=== PATIENT | female | born 1990 | race Caucasian/White ===

== ENCOUNTER 2017-09-05 15:55 | Outpatient (CLI) ==
[2013-05-09 06:58] VITALS: TEMP 99
[2014-05-27 13:19] VITALS: BMI 22.4
--- NOTE | 2017-09-05 16:35 | DI ---
EXAM: Radiographs, left knee HISTORY: Initial presentation for left knee pain following a fall. COMPARISON: None available. TECHNIQUE: Four views. FINDINGS: Bone mineralization is normal. There is no fracture or dislocation. The joint spaces are maintained. No focal soft tissue abnormality is seen. IMPRESSION: No fracture or dislocation.
== END 2017-09-05 15:56 | disposition home or self-care (01) ==
LOC: RAD 15:55
PROVIDERS: ATTEND Nurse Practitioner Family
DX: M25.562 Pain in left knee (principal); W19.XXXA Unspecified fall, initial encounter

== ENCOUNTER 2017-09-13 07:56 | Outpatient (CLI) ==
[2013-05-09 06:58] VITALS: TEMP 99
[2014-05-27 13:19] VITALS: BMI 22.4
[2017-09-13 09:14] LABS: BASOPHILS % (AUTO) 0.4 % (0.0-3.0); EOSINOPHILS # (AUTO) 0.1 K/ul (0.0-0.7); EOSINOPHILS % (AUTO) 1.1 % (0.0-7.0); HEMATOCRIT 41.3 % (37.0-47.0); HEMOGLOBIN 14.7 g/dl (12.0-16.0); IMMATURE GRANULOCYTE % (AUTO) 0.2 % (0.0-5.0); LYMPHOCYTES # (AUTO) 2.2 K/uL (0.60-3.4); LYMPHOCYTES % (AUTO) 39.1 (10.0-50.0); MEAN CORPUSCULAR HEMOGLOBIN 29.4 pg (27.0-31.0); MEAN CORPUSCULAR HGB CONC 35.6 (31.8-35.4); MEAN CORPUSCULAR VOLUME 82.6 fl (81.0-99.0); MONOCYTES # (AUTO) 0.5 K/uL (0.4-2.0); MONOCYTES % (AUTO) 8.1 (0-10); NEUTROPHILS # (AUTO) 2.8 K/ul (2.0-6.9); NEUTROPHILS % (AUTO) 51.1; PLATELET COUNT 214 10^3/uL (140-440); WHITE BLOOD COUNT 5.53 K/ul (4.6-10.2)
--- NOTE | 2017-09-13 09:40 | MRI ---
EXAM: MRI left knee without contrast. HISTORY: Fall. Pain. No left knee surgery reported. TECHNIQUE: Using a local extremity coil on a high field strength magnet multiplanar multisequence MR I was performed of the left knee without intravenous or intra-articular gadolinium contrast. COMPARISON: Four view plain film examination left knee 09/05/2017.. FINDINGS: Within the medial compartment the medial meniscus is intact without discrete surfacing men iscal tear. The medial compartment cartilage congruent without focal underlying subchondral edema. Within the lateral compartment the lateral meniscus is intact without discrete surfacing meniscal tea r. The lateral compartment cartilage congruent without focal underlying subchondral edema. Within the patellofemoral compartment the patella seated with intact medial and lateral patellar reti naculum. Both the patellar and trochlear groove cartilage congruent without focal underlying subchon dral edema. Trace left knee effusion. No osteochondral loose bodies identified. Intact anterior and posterior c ruciate ligaments. The extensor mechanism is intact. Patellar tendinosis. Minimal anterior superfi cial soft tissue edema/swelling. The medial collateral ligament as well as lateral collateral ligame nt complex and posterolateral corner intact. Overall bone marrow signal intensity shows no acute fra cture, stress fracture or bone erosions. IMPRESSION: No discrete surfacing meniscal tear. Trace left knee effusion. Intact cruciate and collateral ligaments. Patellar tendinosis. Minimal anterior superficial soft tissue edema/swelling. No acute fracture/str ess fracture.
[2017-09-13 09:44] LABS: ANION GAP 12.4; BILIRUBIN,TOTAL 0.7 mg/dL (0.00-1.20); BUN/CREATININE RATIO 15.71; CALCIUM 9.3 mg/dL (8.2-10.2); CREATININE 0.7 mg/dL (0.60-1.30); POTASSIUM 4.4 mmol/L (3.5-5.10)
[2017-09-13 09:45] LABS: ALBUMIN 4.1 g/dL (3.4-5.0); ALBUMIN/GLOBULIN RATIO 1.28; CHOL/HDL RATIO 4.7 (4.5-5.5); TOTAL PROTEIN 7.3 g/dL (6.4-8.2)
== END 2017-09-13 07:57 | disposition home or self-care (01) ==
LOC: RAD 07:56
PROVIDERS: ATTEND Nurse Practitioner Family
DX: Z00.00 Encounter for general adult medical examination without abnormal findings (principal); M25.562 Pain in left knee; G89.29 Other chronic pain
CPT/HCPCS: 36415; 80053; 80061; 84443; 85025

== ENCOUNTER 2018-07-30 20:30 | Emergency (ER) ==
[2018-07-30 20:35] VITALS: BMI 24.2
[2018-07-30] MEDS ORDERED: ZOFRAN 4 MG/2 ML IVP STA (20:48)
[2018-07-30] MEDS ORDERED: SODIUM CHLORIDE 1,000 ML IV STA (20:48)
[2018-07-30] MEDS ORDERED: TORADOL IVP STA (20:48)
[2018-07-30] MEDS ORDERED: LEVAQUIN 500 MG in PREMIX 100 ML D5W 1 BAG IV STA (20:49)
--- NOTE | 2018-07-30 20:56 | ED.PDOC ---
General ED Provider: Dr. GABRIEL REAGAN Chief Complaint: Back Pain Stated Complaint: Patient is a 28 year old female who has a history of Kidney stones and Pylonephritis who seen her urologist today for back pain that felt like prior attacks. She was prescribed Macrobid but the pain got worse with nausea. No vomting at this time but severe flank pain. Time Seen by Physician: 20:58 Mode of Arrival: Walk-In Information Source: Patient Exam Limitations: No limitations Primary Care Provider: STEVE ADAME Nursing and Triage Documentation Reviewed and Agree: Yes Does patient meet sepsis criteria?: No System Inflammatory Response Syndrome: Not Applicable Sepsis Protocol: For patient's 13 years and over: Temp is 96.8 and below OR 101 and greater Pulse >90 BPM Resp >20/minute Acutely Altered Mental Status Are patient's symptoms suggestive of a new infection, such as: -Pneumonia -Skin, Soft Tissue -Endocarditis -UTI -Bone, Joint Infection -Implantable Device -Acute Abdominal Infection -Wound Infection -Meningitis -Blood Stream Catheter Infection -Unknown Musculoskeletal Complaint Exam - Back Pain Complaint/Exam Mechanism of Injury: Reports: No known trauma Onset/Duration: 2 days Symptoms Are: Still present Timing: Constant Initial Severity: Moderate Current Severity: Severe Location: Reports: Diffuse (right > left ) Character: Reports: Sharp, Aching, Throbbing Aggravating: Reports: Movements, Bending, Walking Associated Signs and Symptoms: Reports: Abdominal pain, Flank pain (Right >> left ) TAD Risk Factors: Reports: None AAA Risk Factors: Reports: None Cauda Equina Risk Factors: Reports: None Epidural Abcess Risk Factors: Reports: None Related Surgical History: Reports: Kidney Stone Focal Tenderness: Yes Paraspinal Muscle Tenderness: No Paraspinal Muscle Spasm: No Scoliosis: No Lordosis: No Kyphosis: No SLR Test: Right Negative, Left Negative Hip Motion Testing Pain: Right Negative, Left Negative Focal Weakness: Present: None Focal Sensory Loss: Present: None Gait: Present: Normal Back Picture: 1 - pain and tenderness to palpation Differential Diagnoses: Renal Colic, Other (Pyelonephritis ) Review of Systems - Review Of Systems Constitutional: Reports: Chills Eyes: Reports: No symptoms Ears, Nose, Mouth, Throat: Reports: No symptoms Respiratory: Reports: No symptoms Cardiac: Reports: No symptoms GI: Reports: No symptoms : Reports: No symptoms Musculoskeletal: Reports: Back pain Skin: Reports: No symptoms Neurological: Reports: Anxiety Endocrine: Reports: No symptoms Hematologic/Lymphatic: Reports: No symptoms All Other Systems: Reviewed and Negative Past Medical History - Past Medical History Previously Healthy: Yes Endocrine: Reports: None Cardiovascular: Reports: None Respiratory: Reports: None Hematological: Reports: None Gastrointestinal: Reports: None Genitourinary: Reports: UTI, Kidney stones Neuro/Psych: Reports: None Musculoskeletal: Reports: None Cancer: Reports: None Last Menstrual Period: 3 years - Surgical History General Surgical History: Reports: Other (PFO CLOSURE, ESSURE, ) - Family History Family History: Reports: Unknown - Social History Smoking Status: Never smoker Hx Substance Use: No Alcohol Screening: None - Immunizations Tetanus Shot up to Date: Yes Physical Exam - Physical Exam Appearance: Ill-appearing Ill-appearing: Moderate Pain Distress: Severe Neck: Supple Respiratory: Airway patent, Breath sounds clear, Breath sounds equal, Respirations nonlabored Cardiovascular: RRR, Pulses normal, No rub, No murmur GI/: Soft, No masses, Bowel sounds normal, No Organomegaly, Tender (Right lower abdomen) Musculoskeletal: Normal strength, ROM intact Skin: Warm, Dry Neurological: Alert, Oriented Psychiatric: Anxious Interpretation - Radiology Interpretation Radiology Interpretation By: Radiologist Radiology Results: Negative Exam Interpreted: CT Scan Re-Evaluation - Re-Evaluation Time of Re-Evaluation: 23:04 Status: Improved Vital Signs Stable: Yes Pain Level: improved Physician Notification - Case Discussed Physician Notified: Dr Ace Time of Notification: 22:10 (Declined admission due to no fever, or WBC. Rec follow up with PCP in the morning. Return if worse. ) Critical Care Note - Critical Care Note Total Time (mins): 30 Course - Course Hematology/Chemistry: 07/30/18 21:15 07/30/18 21:15 Orders, Labs, Meds: Lab Review 07/30/18 07/30/18 07/30/18 20:40 20:49 21:15 WBC 7.27 RBC 4.77 Hgb 13.5 Hct 39.9 MCV 83.6 MCH 28.3 MCHC 33.8 RDW Coeff of Reinaldo 12.8 Plt Count 209 Immature Gran % (Auto) 0.1 Neut % (Auto) 50.5 Lymph % (Auto) 37.7 [place] % (Auto) 8.3 Eos % (Auto) 3.0 Baso % (Auto) 0.4 Immature Gran # (Auto) 0.0 Neut # (Auto) 3.7 Lymph # (Auto) 2.7 [place] # (Auto) 0.6 Eos # (Auto) 0.2 Baso # (Auto) 0.0 Sodium Potassium Chloride Carbon Dioxide Anion Gap BUN Creatinine Estimated GFR (MDRD) BUN/Creatinine Ratio Glucose Lactic Acid Calcium Total Bilirubin AST ALT Alkaline Phosphatase Total Protein Albumin Globulin Albumin/Globulin Ratio Amylase Lipase Procalcitonin < 0.05 Urine Color Yellow Urine Clarity Slightly Urine pH 6.0 Ur Specific [place] 1.025 Urine Protein Negative Urine Glucose (UA) Negative Urine Ketones Trace Urine Blood Negative Urine Nitrite Negative Urine Bilirubin Negative Urine Urobilinogen 1.0 Ur Leukocyte Esterase Negative Urine Microscopic RBC 0-2 Urine Microscopic WBC 2-5 Ur Squamous Epith Cells 2-5 Calcium Oxalate Crystal 1+ Urine Bacteria 3+ 07/30/18 07/30/18 21:15 21:15 WBC RBC Hgb Hct MCV MCH MCHC RDW Coeff of Reinaldo Plt Count Immature Gran % (Auto) Neut % (Auto) Lymph % (Auto) [place] % (Auto) Eos % (Auto) Baso % (Auto) Immature Gran # (Auto) Neut # (Auto) Lymph # (Auto) [place] # (Auto) Eos # (Auto) Baso # (Auto) Sodium 138.9 Potassium 3.63 Chloride 105.1 Carbon Dioxide 27.6 Anion Gap 9.83 BUN 14.9 Creatinine 0.73 Estimated GFR (MDRD) 94.00 BUN/Creatinine Ratio 20.41 Glucose 102.5 Lactic Acid 1.53 Calcium 8.78 Total Bilirubin 0.50 AST 25.0 ALT 17.3 Alkaline Phosphatase 51.4 Total Protein 7.03 Albumin 4.03 Globulin 3.00 Albumin/Globulin Ratio 1.34 Amylase 56.9 Lipase 128.9 Procalcitonin Urine Color Urine Clarity Urine pH Ur Specific [place] Urine Protein Urine Glucose (UA) Urine Ketones Urine Blood Urine Nitrite Urine Bilirubin Urine Urobilinogen Ur Leukocyte Esterase Urine Microscopic RBC Urine Microscopic WBC Ur Squamous Epith Cells Calcium Oxalate Crystal Urine Bacteria Orders Category Date Time Status ED IV/MEDIPORT/POWERPORT .ONCE EMERGENCY 07/30/18 20:48 Active AMYLASE Stat LAB 07/30/18 21:15 Completed BLOOD CULTURE (ED ONLY) Stat LAB 07/30/18 21:15 Received CBC W/ AUTO DIFF Stat LAB 07/30/18 21:15 Completed COMPREHENSIVE METABOLIC PANEL Stat LAB 07/30/18 21:15 Completed LACTIC ACID Stat LAB 07/30/18 21:15 Completed LIPASE Stat LAB 07/30/18 21:15 Completed PROCALCITONIN Stat LAB 07/30/18 20:49 Completed URINALYSIS C & S IF INDICATED Stat LAB 07/30/18 20:40 Completed URINE CULTURE Stat LAB 07/30/18 20:40 Received 0.9 % Sodium Chloride [Saline Flush] MEDS 07/30/18 20:48 Ordered 1 syr IVF PRN PRN Ed After Hour Supply Med [Ed After Hours Supply Med MEDS 07/30/18 23:02 Once Sent Home] 1 each PO ONCE ONE Ertapenem Sodium [Invanz] MEDS 07/30/18 21:08 Discontinued 1 gm .ROUTE .STK-MED ONE Ertapenem Sodium [Invanz] 1 gm MEDS 07/30/18 20:59 Discontinued 0.9 % Sodium Chloride [Sodium Chloride] 50 ml IV ONCE Hydromorphone HCl [Dilaudid 0.5 mg/0.5 ml Syringe] MEDS 07/30/18 21:29 Discontinued 1 mg IVP ONCE STA Hydromorphone HCl [Dilaudid 0.5 mg/0.5 ml Syringe] MEDS 07/30/18 22:58 Stat 1 mg IVP ONCE STA Ketorolac Tromethamine [Toradol] MEDS 07/30/18 20:48 Discontinued 30 mg IVP ONCE STA Ondansetron HCl/Pf [Zofran 4 mg/2 ml] MEDS 07/30/18 20:48 Discontinued 4 mg IVP ONCE STA Promethazine HCl [Phenergan 25 mg/ml Vial] MEDS 07/30/18 21:38 Discontinued 25 mg .ROUTE .STK-MED ONE Promethazine HCl [Phenergan 25 mg/ml Vial] 25 mg MEDS 07/30/18 21:37 Discontinued 0.9 % Sodium Chloride [Sodium Chloride] 50 ml IV ONCE Sodium Chloride 0.9% [Sodium Chloride] 1,000 ml MEDS 07/30/18 20:[address] ABD/PEL WO RENAL STONE PROT Stat RADS 07/30/18 20:48 Completed Medications Generic Name Dose Route Start Last Admin Trade Name Chelsie PRN Reason Stop Dose Admin Miscellaneous Information 1 each 07/30/18 23:02 Ed After Hours Supply Med Sent Home PO 07/30/18 23:03 ONCE ONE Protocol Sodium Chloride 1 syr 07/30/18 20:48 Saline Flush IVF PRN PRN To flush IV Discontinued Medications Generic Name Dose Route Start Last Admin Trade Name Chelsie PRN Reason Stop Dose Admin Hydromorphone HCl 1 mg 07/30/18 21:29 07/30/18 21:54 Dilaudid 0.5 Mg/0.5 Ml Syringe IVP 07/30/18 21:30 1 mg ONCE STA Administration Hydromorphone HCl 1 mg 07/30/18 22:58 Dilaudid 0.5 Mg/0.5 Ml Syringe IVP 07/30/18 22:59 ONCE STA Sodium Chloride 1,000 mls @ 1,000 mls/hr 07/30/18 20:48 07/30/18 21:19 Sodium Chloride IV 07/30/18 21:47 1,000 mls/hr BOLUS STA Administration Ertapenem 1 gm/ Sodium 50 mls @ 75 mls/hr 07/30/18 20:59 07/30/18 21:19 Chloride IV 07/30/18 21:38 Not Given ONCE STA Promethazine HCl 25 mg/ Sodium 51 mls @ 75 mls/hr 07/30/18 21:37 07/30/18 21: 55 Chloride IV 07/30/18 22:17 75 mls/hr ONCE STA Administration Ketorolac Tromethamine 30 mg 07/30/18 20:48 07/30/18 21:19 Toradol IVP 07/30/18 20:49 30 mg ONCE STA Administration Ondansetron HCl 4 mg 07/30/18 20:48 07/30/18 21:20 Zofran 4 Mg/2 Ml IVP 07/30/18 20:49 4 mg ONCE STA Administration Vital Signs: Temp Pulse Resp BP Pulse Ox 07/30/18 20:30 97.1 F L 89 18 150/109 H 96 Departure - Departure Time of Disposition: 23:15 Disposition: HOME SELF-CARE Discharge Problem: Pyelonephritis Instructions: Urinary Tract Infection in Women (ED) Condition: Fair Pt referred to PMD for follow-up: Yes IPMP verified?: No Additional Instructions: MUST FOLLOW UP WITH UROLOGIST IN THE MORNING. CONTINUE TO TAKE YOUR ANTIBIOTICS PRESCRIBED RETURN IF WORSE AT ANY TIME. TAKE PAIN MEDICATIONS NEEDED FOR PAIN Prescriptions: Hydrocodone/Acetaminophen [Terril 5-325 Tablet] 1 tab PO Q6HR PRN #12 tablet PRN Reason: PAIN Allergies/Adverse Reactions: Allergies cephalexin monohydrate [From Keflex] Allergy (Mild, Unverified 07/30/18 20:35) Hives, itching diphenhydramine HCl [From Benadryl] Adverse Reaction (Verified 07/30/18 20:35) loratadine [From Claritin] Adverse Reaction (Verified 07/30/18 20:35) Home Medications: Ambulatory Orders Hydrocodone/Acetaminophen [Terril 5-325 Tablet] 1 tab PO Q6HR PRN #12 tablet 10/06 Nitrofurantoin Macrocrystal [Macrodantin] 100 mg PO Q4-6H 07/30/18 Disposition Discussed With: Patient
[2018-07-30] MEDS ORDERED: INVANZ 1 GM in SODIUM CHLORIDE 50 ML IV STA (20:59)
[2018-07-30] MEDS ORDERED: INVANZ ONE (21:08)
[2018-07-30] MEDS ORDERED: SODIUM CHLORIDE 50 ML IV ONE (21:19)
--- NOTE | 2018-07-30 21:22 | CT ---
EXAM: Noncontrast CT of the abdomen and pelvis. HISTORY: Back pain. Prior hysterectomy. COMPARISON: CT urogram dated 06/14/2017 TECHNIQUE: Contiguous axial images at 3 mm intervals were obtained from lung bases through the pelvi s. No contrast was given. Coronal reformats were reviewed. FINDINGS: The study is limited without contrast. CHEST: The lung bases show no lobar consolidation or effusion. The heart size is within normal limi ts. ABDOMEN: Evaluation of the soft tissue organs is limited without contrast. LIVER: Noncontrast images of the liver show no solid mass lesion or intrahepatic ductal dilatation. BILIARY: The gallbladder is normally distended. No gallstones are noted. No pericholecystic fluid or inflammation. The common bile duct is normal. SPLEEN: The spleen is unremarkable. PANCREAS: The pancreas shows no mass lesion or peripancreatic inflammation. ADRENAL GLANDS: The adrenal glands are normal. RENAL: The kidneys show no hydronephrosis. The surface the right kidney is lobulated. There are co rtical calcifications. No obstructing ureteral stones are seen. There are no obstructing ureteral s tones. No solid mass lesions are identified. RETROPERITONEUM: The aorta is unopacified. No aneurysm is identified. No significant aortic calcif ications are seen. There is no retroperitoneal or mesenteric adenopathy. BOWEL: The bowel is unopacified. There is no obstruction or inflammatory change. There is no free fluid or free air. No significant inflammatory changes are seen. The appendix is identified and is normal. PELVIS: BLADDER: The bladder is not well distended which limits evaluation.. GENITOURINARY STRUCTURES: The uterus is absent. There are no adnexal masses. There is no free flui d the pelvis. OSSEOUS STRUCTURES: The osseous structures are normal for age. IMPRESSION 1. No acute intra-abdominal abnormality. Limited study without contrast. No obstructing ureteral s tones. 2. The appendix is normal. 3. Lobulated surface of the right kidney with cortical calcifications. This appearance is unchanged and may relate to prior infarct or infection. No significant change in comparison to the prior study.
[2018-07-30] MEDS ORDERED: DILAUDID 0.5 MG/0.5 ML SYRINGE IVP STA ×2 (21:29→22:58)
[2018-07-30] MEDS ORDERED: PHENERGAN 25 MG/ML VIAL 25 MG in SODIUM CHLORIDE 50 ML IV STA (21:37)
[2018-07-30] MEDS ORDERED: PHENERGAN 25 MG/ML VIAL ONE (21:38)
[2018-07-30] MEDS ORDERED: ED AFTER HOURS SUPPLY MED SENT HOME PO ONE (23:02)
[2018-07-30] MEDS ORDERED: NORCO 7.5-325 ONE ×2 (23:27→23:32)
[2018-07-30 23:43] VITALS: BP 132/84; TEMP 98.1
== END 2018-07-30 23:53 | disposition home or self-care (01) ==
LOC: ED 20:30
DX: N12 Tubulo-interstitial nephritis, not specified as acute or chronic (principal); Z87.442 Personal history of urinary calculi
CPT/HCPCS: 36415; 74176; 80053; 81001; 82150; 83605; 83690; 84145; 85025; 87040; 87086; 96361; 96365; 96366; 96375; 99284

== ENCOUNTER 2018-08-13 16:50 | Emergency (ER) ==
[2018-08-13 16:52] VITALS: BMI 24.2
[2018-08-13 16:57] VITALS: BP 106/73; TEMP 98.3
--- NOTE | 2018-08-13 18:22 | ED.PDOC ---
General ED Provider: Dr. SHANNAN VALDEZ Chief Complaint: Urinary Problem Stated Complaint: Severe abdominal and flank pain.History of persistent pain and recurrent pyelonephritis. Was seen by dr. Pierre her urologist in [place] last week and was told she had e-coli in urine --"bad uti" was placed on Macrodantin as previous antibiotic not effective. Having generalize body aches- with fever. States being referred to Dr Lewis for 2nd opinion due to concern over growth in her bladder Time Seen by Physician: 18:05 Mode of Arrival: Wheelchair Information Source: Patient Exam Limitations: No limitations Primary Care Provider: STEVE ADAME Nursing and Triage Documentation Reviewed and Agree: Yes Does patient meet sepsis criteria?: No System Inflammatory Response Syndrome: Not Applicable Sepsis Protocol: For patient's 13 years and over: Temp is 96.8 and below OR 101 and greater Pulse >90 BPM Resp >20/minute Acutely Altered Mental Status Are patient's symptoms suggestive of a new infection, such as: -Pneumonia -Skin, Soft Tissue -Endocarditis -UTI -Bone, Joint Infection -Implantable Device -Acute Abdominal Infection -Wound Infection -Meningitis -Blood Stream Catheter Infection -Unknown Complaint Exam - UTI Female Complaint/Exam Patient Complains of: Reports: Painful urination Onset/Duration: 2 week Symptoms Are: Worse Timing: Constant Initial Severity: Severe Current Severity: Severe Location of Pain: Reports: Right, Flank, Suprapubic, Radiating Associated Signs and Symptoms: Reports: Fever, Chills, Flank pain Related History: Reports: Similar episode Related Surgical History: Reports: None CVA Tenderness: Yes Suprapubic Tenderness: Yes Review of Systems - Review Of Systems Constitutional: Reports: No symptoms Eyes: Reports: No symptoms Ears, Nose, Mouth, Throat: Reports: No symptoms Respiratory: Reports: No symptoms Cardiac: Reports: No symptoms GI: Reports: No symptoms : Reports: Burning, Dysuria, Flank pain Musculoskeletal: Reports: No symptoms Skin: Reports: No symptoms Neurological: Reports: No symptoms Endocrine: Reports: No symptoms Hematologic/Lymphatic: Reports: No symptoms All Other Systems: Reviewed and Negative Past Medical History - Past Medical History Previously Healthy: Yes Endocrine: Reports: None Cardiovascular: Reports: None Respiratory: Reports: None Hematological: Reports: None Gastrointestinal: Reports: None Genitourinary: Reports: UTI, Kidney stones Neuro/Psych: Reports: None Musculoskeletal: Reports: None Cancer: Reports: None Last Menstrual Period: hysterectomy - Surgical History General Surgical History: Reports: Other (PFO CLOSURE, ESSURE, ) - Family History Family History: Reports: Unknown - Social History Smoking Status: Never smoker Hx Substance Use: No Alcohol Screening: None Physical Exam - Physical Exam Appearance: Well-appearing, Ill-appearing, Well-nourished Ill-appearing: Moderate Pain Distress: Severe Eyes: MERLE, EOMI, Conjunctiva clear ENT: Ears normal, Nose normal, Oropharynx normal Respiratory: Airway patent, Breath sounds clear, Breath sounds equal, Respirations nonlabored Cardiovascular: RRR, Pulses normal, No rub, No murmur GI/: Soft, No masses, Bowel sounds normal, No Organomegaly, Tender Musculoskeletal: Normal strength, ROM intact, No edema, No calf tenderness Skin: Warm, Dry, Normal color Neurological: Sensation intact, Motor intact, Reflexes intact, Cranial nerves intact, Alert, Oriented Psychiatric: Affect appropriate, Mood appropriate Critical Care Note - Critical Care Note Total Time (mins): 30 Course - Course Hematology/Chemistry: 08/13/18 18:26 08/13/18 18:26 Orders, Labs, Meds: Lab Review 08/13/18 08/13/18 08/13/18 18:01 18:26 18:26 WBC 6.56 RBC 4.47 Hgb 12.7 Hct 37.5 MCV 83.9 MCH 28.4 MCHC 33.9 RDW Coeff of Reinaldo 12.9 Plt Count 213 Immature Gran % (Auto) 0.2 Neut % (Auto) 48.7 Lymph % (Auto) 40.9 [place] % (Auto) 8.4 Eos % (Auto) 1.5 Baso % (Auto) 0.3 Immature Gran # (Auto) 0.0 Neut # (Auto) 3.2 Lymph # (Auto) 2.7 [place] # (Auto) 0.6 Eos # (Auto) 0.1 Baso # (Auto) 0.0 Sodium 139.3 Potassium 3.74 Chloride 105.6 Carbon Dioxide 29.8 Anion Gap 7.64 BUN 11.7 Creatinine 0.81 Estimated GFR (MDRD) 84.00 BUN/Creatinine Ratio 14.44 Glucose 90.0 Calcium 9.08 Total Bilirubin 0.34 AST 24.7 ALT 10.4 Alkaline Phosphatase 51.1 Total Protein 7.02 Albumin 3.89 Globulin 3.13 Albumin/Globulin Ratio 1.24 Urine Color Yellow Urine Clarity Cloudy Urine pH 6.5 Ur Specific [place] 1.025 Urine Protein Negative Urine Glucose (UA) Negative Urine Ketones Negative Urine Blood Negative Urine Nitrite Positive Urine Bilirubin Negative Urine Urobilinogen 2.0 Ur Leukocyte Esterase Negative Urine Microscopic WBC 2-5 Ur Squamous Epith Cells 20-30 Urine Bacteria 4+ Orders Category Date Time Status NPO REMINDER: IMAGING ONCE CARE 08/13/18 18:21 Completed IV [ED IV/MEDIPORT/POWERPORT] .ONCE EMERGENCY 08/13/18 18:21 Active CBC W/ AUTO DIFF Stat LAB 08/13/18 18:26 Completed CMP [COMPREHENSIVE METABOLIC PANEL] Stat LAB 08/13/18 18:26 Completed UA [URINALYSIS C & S IF INDICATED] Stat LAB 08/13/18 18:01 Completed URINE CULTURE Stat LAB 08/13/18 18:01 Received 0.9 % Sodium Chloride [Saline Flush] MEDS 08/13/18 18:21 Ordered 1 syr IVF PRN PRN Hydromorphone HCl [Dilaudid 1 mg/ml Syringe] MEDS 08/13/18 19:51 Discontinued 1 mg IM ONCE STA Ketorolac Tromethamine [Toradol] MEDS 08/13/18 18:30 Discontinued 30 mg IVP ONCE STA Ondansetron HCl/Pf [Zofran 4 mg/2 ml] MEDS 08/13/18 19:50 Discontinued 4 [address]P ONCE [address]A [address] ABDOMEN/PELVIS W/WO CONTRAS Stat RADS 08/13/18 18:20 Completed Medications Generic Name Dose Route Start Last Admin Trade Name Freq PRN Reason Stop Dose Admin Sodium Chloride 1 syr 08/13/18 18:21 08/13/18 18:35 Saline Flush IVF 1 syr PRN PRN Administration To flush IV Discontinued Medications Generic Name Dose Route Start Last Admin Trade Name Freq PRN Reason Stop Dose Admin Hydromorphone HCl 1 mg 08/13/18 19:51 08/13/18 20:09 Dilaudid 1 Mg/Ml Syringe IM 08/13/18 19:52 1 mg ONCE STA Administration Ketorolac Tromethamine 30 mg 08/13/18 18:30 08/13/18 18:35 Toradol IVP 08/13/18 18:31 30 mg ONCE STA Administration Ondansetron HCl 4 mg 08/13/18 19:50 08/13/18 20:05 Zofran 4 Mg/2 Ml IVP 08/13/18 19:51 4 mg ONCE STA Administration Vital Signs: Temp Pulse Resp BP Pulse Ox 08/13/18 16:52 98.3 F 78 20 106/73 97 Departure - Departure Time of Disposition: 20:15 Disposition: HOME SELF-CARE Discharge Problem: UTI (urinary tract infection), Dysuria, Acute UTI, Constipation Instructions: Urinary Tract Infection in Women (ED), Dysuria (ED), Constipation (ED) Condition: Fair Pt referred to PMD for follow-up: Yes IPMP verified?: Yes Additional Instructions: Force fluids MOM 15 ml daily prn Take meds as directed Prescriptions: Hydrocodone/Acetaminophen [Hydrocodon-Acetaminophen 5-325] 1 each PO Q4-6H PRN # 10 tablet PRN Reason: Moderate Pain Ondansetron [Zofran Odt] 4 mg PO Q8H PRN #7 tab.rapdis PRN Reason: Nausea / Vomiting Allergies/Adverse Reactions: Allergies cephalexin monohydrate [From Keflex] Allergy (Mild, Verified 08/13/18 16:59) Hives, itching diphenhydramine HCl [From Benadryl] Adverse Reaction (Verified 08/13/18 16:59) loratadine [From Claritin] Adverse Reaction (Verified 08/13/18 16:59) Home Medications: Ambulatory Orders Nitrofurantoin Macrocrystal [Macrodantin] 100 mg PO Q4-6H 07/30/18 Hydrocodone/Acetaminophen [[place] 5-325 Tablet] 1 each PO Q4-6H PRN #10 tablet Ondansetron [Zofran Odt] 4 mg PO Q8H PRN #7 tab.rapdis 08/13/18 Disposition Discussed With: Patient, Family
[2018-08-13] MEDS ORDERED: TORADOL IM STA (18:26)
[2018-08-13] MEDS: TORADOL IVP STA (18:35)
[2018-08-13] MEDS: ZOFRAN 4 MG/2 ML IVP STA (20:05)
--- NOTE | 2018-08-13 20:08 | CT ---
EXAM: CT of the abdomen and pelvis with and without IV contrast. HISTORY: Severe right flank pain and right lower quadrant abdominal pain. PROCEDURE: Contiguous axial CT images of the abdomen and pelvis with and without IV contrast with co patricio and sagittal reformats. FINDINGS: The liver, gallbladder, pancreas, spleen, adrenal glands and left kidney are normal in appe arance. There is right renal cortical scarring. There are multiple nonobstructive calcifications in the right kidney measuring up to 5 mm. No hydronephrosis. The ureters are incompletely visualized. The abdominal aorta is within normal limits in diameter. The appendix is normal in appearance. Ther e is fecal stasis in the colon. No free fluid or free air in the abdomen or pelvis. The bladder is m inimally filled with no abnormality identified. The uterus is surgically absent. There are phlebolit hs in the lower pelvis. The bones and soft tissues are unremarkable. Impression: Nonobstructive right nephrolithiasis as described. The ureters are incompletely visualiz ed and a nonobstructive ureterolith cannot be excluded. Right renal cortical scarring. Fecal stasis in the colon. Hysterectomy.
[2018-08-13] MEDS: DILAUDID 1 MG/ML SYRINGE IM STA (20:09)
== END 2018-08-13 20:25 | disposition home or self-care (01) ==
LOC: ED 16:50
DX: N39.0 Urinary tract infection, site not specified (principal); K59.00 Constipation, unspecified; R30.0 Dysuria; Z87.442 Personal history of urinary calculi; Z87.440 Personal history of urinary (tract) infections
CPT/HCPCS: 36415; 80053; 81001; 85025; 87086; 87186; 96372; 96374; 96375; 96376; 99283

== ENCOUNTER 2018-11-18 11:08 | Outpatient (CLI) ==
[2013-05-09 06:58] VITALS: TEMP 99
[2018-11-08 04:37] VITALS: BMI 25.1
== END 2018-11-18 11:09 | disposition home or self-care (01) ==
LOC: RHC-LAB 11:08
PROVIDERS: ATTEND Nurse Practitioner Family
DX: R50.9 Fever, unspecified (principal)
CPT/HCPCS: 87502

== ENCOUNTER 2019-01-15 16:26 | Outpatient (CLI) ==
[2013-05-09 06:58] VITALS: TEMP 99
[2018-11-08 04:37] VITALS: BMI 25.1
== END 2019-01-15 16:27 | disposition home or self-care (01) ==
LOC: LAB 16:26
PROVIDERS: ATTEND Family Medicine
DX: R53.81 Other malaise (principal); F31.12 Bipolar disorder, current episode manic without psychotic features, moderate
CPT/HCPCS: 36415; 80053; 84439; 84443; 85025

== ENCOUNTER 2019-03-21 14:20 | Emergency (ER) ==
[2019-03-21 14:30] VITALS: BP 123/77; TEMP 100.4; BMI 24.9
[2019-03-21] MEDS ORDERED: DILAUDID 0.5 MG/0.5 ML SYRINGE IVP STA (14:53)
[2019-03-21] MEDS ORDERED: SODIUM CHLORIDE 1,000 ML IV STA (14:53)
[2019-03-21] MEDS ORDERED: ZOFRAN 4 MG/2 ML IVP STA (14:54)
[2019-03-21] MEDS ORDERED: TYLENOL PO STA (15:11)
[2019-03-21] MEDS ORDERED: LEVAQUIN 500 MG in PREMIX 100 ML D5W 1 BAG IV STA (15:11)
[2019-03-21] MEDS ORDERED: LEVAQUIN 100 ML IV ONE (15:26)
--- NOTE | 2019-03-21 15:59 | CT ---
EXAM: CT of the abdomen pelvis without contrast History: Renal stones and fever. Comparison: CT abdomen pelvis 11/08/2018 Technique: Multiplanar CT images through the abdomen pelvis were obtained without the administration of IV contrast Findings: Lung bases are clear. No acute osseous abnormalities. No discrete gallstones identified by CT. No focal liver or splenic lesions. No change in the right renal cortical scarring and no change in the small punctate right renal cortical calcifications. No perinephric stranding. Evaluation of the renal parenchyma is limited due to the lack of contrast adm inistration. The appendix is normal. No hydronephrosis and no ureteral calculi. Stable pelvic phle boliths. No peripancreatic inflammation. Adrenal glands are unremarkable. No bowel obstruction. N o free air and no ascites. No bladder wall thickening. Uterus is not seen and likely has been surgi brandie removed. No perirectal inflammation. Mild to moderate colonic stool. No abdominal aortic ane urysm. Impression: 1. No acute intra-abdominal or pelvic process. 2. No change in the right renal cortical scarring and punctate right renal cortical calcifications.
--- NOTE | 2019-03-21 16:52 | ED.PDOC ---
General ED Provider: Dr. RACHEL HUBBARD Chief Complaint: Fever Stated Complaint: fever chill, urinary symptoms Time Seen by Physician: 14:30 (seen with nurses at all times ) Mode of Arrival: Wheelchair Information Source: Patient, Family Exam Limitations: No limitations Primary Care Provider: FAUZIA JACKSON Nursing and Triage Documentation Reviewed and Agree: Yes Does patient meet sepsis criteria?: No If yes, has appropriate treatment been initiated?: No System Inflammatory Response Syndrome: Not Applicable Sepsis Protocol: For patient's 13 years and over: Temp is 96.8 and below OR 101 and greater Pulse >90 BPM Resp >20/minute Acutely Altered Mental Status Are patient's symptoms suggestive of a new infection, such as: -Pneumonia -Skin, Soft Tissue -Endocarditis -UTI -Bone, Joint Infection -Implantable Device -Acute Abdominal Infection -Wound Infection -Meningitis -Blood Stream Catheter Infection -Unknown Complaint Exam - Complaint/Exam Patient Complains of: Reports: Dysuria Symptoms Are: Still present Initial Severity: Mild Current Severity: None Location of Pain: Reports: None Character: Reports: Cramping Aggravating: Reports: Urination Alleviating: Reports: None Associated Signs and Symptoms: Reports: Fever, Dysuria, Appetite change. Denies : Diaphoresis, Back pain, Hematuria, Constipation, Blood in stool, Rectal pain, Nausea, Vomiting, Decreased urine output, Increased urine frequency, Increased thirst, Decreased activity, Lethargy, Abdominal Pain, Bubble bath use, Vaginal bleeding, Vaginal discharge, Genital swelling, Genital blisters, Retained foreign body Ectopic Risk Factors: Reports: None Ovarian Torsion Risk Factors: Reports: None Surgical Obstruction Risk Factors: Reports: None RH Status: Unknown Related Surgical History: Reports: None Abdominal Findings: Present: None Differential Diagnoses: Renal Colic, Ureteral Stone, UTI Review of Systems - Review Of Systems Constitutional: Reports: Fever Eyes: Reports: No symptoms Ears, Nose, Mouth, Throat: Reports: No symptoms Respiratory: Reports: No symptoms Cardiac: Reports: No symptoms GI: Reports: No symptoms : Reports: Dysuria Musculoskeletal: Reports: Back pain Skin: Reports: No symptoms Neurological: Reports: No symptoms Endocrine: Reports: No symptoms Hematologic/Lymphatic: Reports: No symptoms All Other Systems: Reviewed and Negative Past Medical History - Past Medical History Previously Healthy: Yes Endocrine: Reports: None Cardiovascular: Reports: None Respiratory: Reports: None Hematological: Reports: None Gastrointestinal: Reports: None Genitourinary: Reports: UTI, Kidney stones Neuro/Psych: Reports: None Musculoskeletal: Reports: None Cancer: Reports: None Last Menstrual Period: 2014 - Surgical History General Surgical History: Reports: Other (PFO CLOSURE, ESSURE, ) - Family History Family History: Reports: Unknown - Social History Smoking Status: Never smoker Hx Substance Use: No Alcohol Screening: None Physical Exam - Physical Exam Appearance: Well-appearing, No pain distress, Well-nourished Eyes: MERLE, EOMI, Conjunctiva clear ENT: Ears normal, Nose normal, Oropharynx normal Respiratory: Airway patent, Breath sounds clear, Breath sounds equal, Respirations nonlabored Cardiovascular: RRR, Pulses normal, No rub, No murmur GI/: Soft, Nontender, No masses, Bowel sounds normal, No Organomegaly Musculoskeletal: Normal strength, ROM intact, No edema, No calf tenderness Skin: Warm, Dry, Normal color Neurological: Sensation intact, Motor intact, Reflexes intact, Cranial nerves intact, Alert, Oriented Psychiatric: Affect appropriate, Mood appropriate Interpretation - Radiology Interpretation Radiology Interpretation By: Radiologist Radiology Results: No acute changes Critical Care Note - Critical Care Note Total Time (mins): 0 Course - Course Hematology/Chemistry: 03/21/19 15:14 03/21/19 15:14 Orders, Labs, Meds: Lab Review 03/21/19 03/21/19 03/21/19 15:14 15:14 15:14 WBC 7.50 RBC 4.70 Hgb 13.7 Hct 39.5 MCV 84.0 MCH 29.1 MCHC 34.7 RDW Coeff of Reinaldo 12.4 Plt Count 185 Immature Gran % (Auto) 0.1 Neut % (Auto) 82.8 Lymph % (Auto) 11.3 [place] % (Auto) 5.6 Eos % (Auto) 0.1 Baso % (Auto) 0.1 Immature Gran # (Auto) 0.0 Neut # (Auto) 6.2 Lymph # (Auto) 0.9 [place] # (Auto) 0.4 Eos # (Auto) 0.0 Baso # (Auto) 0.0 Sodium 137.9 Potassium 3.63 Chloride 103.3 Carbon Dioxide 23.4 Anion Gap 14.83 BUN 11.3 Creatinine 0.76 Estimated GFR (MDRD) 89.00 BUN/Creatinine Ratio 14.86 Glucose 88.1 Lactic Acid Calcium 9.20 Total Bilirubin 0.81 AST 19.9 ALT 14.4 Alkaline Phosphatase 63.1 Total Protein 7.91 Albumin 4.90 Globulin 3.01 Albumin/Globulin Ratio 1.62 Procalcitonin < 0.05 Urine Color Urine Clarity Urine pH Ur Specific [place] Urine Protein Urine Glucose (UA) Urine Ketones Urine Blood Urine Nitrite Urine Bilirubin Urine Urobilinogen Ur Leukocyte Esterase Urine Microscopic WBC Ur Squamous Epith Cells Urine Bacteria 03/21/19 03/21/19 15:14 15:30 WBC RBC Hgb Hct MCV MCH MCHC RDW Coeff of Reinaldo Plt Count Immature Gran % (Auto) Neut % (Auto) Lymph % (Auto) [place] % (Auto) Eos % (Auto) Baso % (Auto) Immature Gran # (Auto) Neut # (Auto) Lymph # (Auto) [place] # (Auto) Eos # (Auto) Baso # (Auto) Sodium Potassium Chloride Carbon Dioxide Anion Gap BUN Creatinine Estimated GFR (MDRD) BUN/Creatinine Ratio Glucose Lactic Acid 0.65 L Calcium Total Bilirubin AST ALT Alkaline Phosphatase Total Protein Albumin Globulin Albumin/Globulin Ratio Procalcitonin Urine Color Yellow Urine Clarity Cloudy Urine pH 7.0 Ur Specific [place] 1.020 Urine Protein Negative Urine Glucose (UA) Negative Urine Ketones 1+ Urine Blood Negative Urine Nitrite Positive Urine Bilirubin Negative Urine Urobilinogen 1.0 Ur Leukocyte Esterase Negative Urine Microscopic WBC 0-2 Ur Squamous Epith Cells Not present Urine Bacteria 2+ Orders Category Date Time Status BLOOD CULTURE Stat LAB 03/21/19 15:14 Received CBC W/ AUTO DIFF Stat LAB 03/21/19 15:14 Completed COMPREHENSIVE METABOLIC PANEL Stat LAB 03/21/19 15:14 Completed LACTIC ACID Stat LAB 03/21/19 15:14 Completed PROCALCITONIN Stat LAB 03/21/19 15:14 Completed URINALYSIS C & S IF INDICATED Stat LAB 03/21/19 15:30 Completed URINE CULTURE Stat LAB 03/21/19 15:30 Received Acetaminophen [Tylenol] MEDS 03/21/19 15:11 Discontinued 650 mg PO ONCE STA Hydromorphone HCl [Dilaudid 0.5 mg/0.5 ml Syringe] MEDS 03/21/19 14:53 Discontinued 0.5 mg IVP ONCE STA Levofloxacin/D5w [Levaquin] 100 ml MEDS 03/21/19 15:26 Discontinued IV .STK-MED Levofloxacin/D5w [Levaquin] 500 mg MEDS 03/21/19 15:11 Discontinued Premix 100 ml D5w 1 bag IV ONCE Ondansetron HCl/Pf [Zofran 4 mg/2 ml] MEDS 03/21/19 14:54 Discontinued 4 mg IVP ONCE STA Sodium Chloride 0.9% [Sodium Chloride] 1,000 ml MEDS 03/21/19 14:[address] ABD/PEL WO RENAL STONE PROT Stat RADS 03/21/19 14:56 Completed Medications Discontinued Medications Generic Name Dose Route Start Last Admin Trade Name Freq PRN Reason Stop Dose Admin Acetaminophen 650 mg 03/21/19 15:11 03/21/19 15:53 Tylenol PO 03/21/19 15:12 650 mg ONCE STA Administration Hydromorphone HCl 0.5 mg 03/21/19 14:53 03/21/19 15:20 Dilaudid 0.5 Mg/0.5 Ml Syringe IVP 03/21/19 14:54 0.5 mg ONCE STA Administration Sodium Chloride 1,000 mls @ 1,000 mls/hr 03/21/19 14:53 03/21/19 15:52 Sodium Chloride IV 03/21/19 15:52 1,000 mls/hr BOLUS STA Administration Levofloxacin/Dextrose 500 mg/ 100 mls @ 100 mls/hr 03/21/19 15:11 03/21/19 15 :53 Dextrose IV 03/21/19 16:10 100 mls/hr ONCE STA Administration Ondansetron HCl 4 mg 03/21/19 14:54 03/21/19 15:19 Zofran 4 Mg/2 Ml IVP 03/21/19 14:55 4 mg ONCE STA Administration Vital Signs: Temp Pulse Resp BP Pulse Ox 03/21/19 14:21 100.4 F H 99 H 20 123/77 98 Departure - Departure Time of Disposition: 16:51 Disposition: HOME SELF-CARE Discharge Problem: Fever UTI (urinary tract infection) Qualifiers: Urinary tract infection type: site unspecified Instructions: Dysuria (ED), Urinary Tract Infection in Women (ED) Condition: Good Pt referred to PMD for follow-up: Yes IPMP verified?: No Additional Instructions: Please call your Family Physician as soon as possible to schedule a follow-up appointment.start med in am Prescriptions: Sulfamethoxazole/Trimethoprim [Bactrim Ds Tablet] 1 each PO BID #10 tablet Allergies/Adverse Reactions: Allergies cephalexin monohydrate [From Keflex] Allergy (Mild, Verified 03/21/19 14:30) Hives, itching diphenhydramine HCl [From Benadryl] Adverse Reaction (Verified 03/21/19 14:30) loratadine [From Claritin] Adverse Reaction (Verified 03/21/19 14:30) Home Medications: Ambulatory Orders Sulfamethoxazole/Trimethoprim [Bactrim Ds Tablet] 1 each PO BID #10 tablet 03/21
== END 2019-03-21 17:14 | disposition home or self-care (01) ==
LOC: ED 14:20
DX: N39.0 Urinary tract infection, site not specified (principal); Z87.440 Personal history of urinary (tract) infections; Z87.442 Personal history of urinary calculi
CPT/HCPCS: 36415; 74176; 80053; 81001; 83605; 84145; 85025; 87040; 87086; 87186; 96361; 96365; 96375; 99283

== ENCOUNTER 2019-04-08 11:51 | Outpatient (CLI) ==
[2013-05-09 06:58] VITALS: TEMP 99
== END 2019-04-08 11:52 | disposition home or self-care (01) ==
LOC: RHC-LAB 11:51 → FCC-LAB 11:52
PROVIDERS: ATTEND Family Medicine
DX: R23.3 Spontaneous ecchymoses (principal); G43.709 Chronic migraine without aura, not intractable, without status migrainosus; N39.0 Urinary tract infection, site not specified
CPT/HCPCS: 36415; 80053; 85025; 87086; 87186

== ENCOUNTER 2019-04-11 09:50 | Outpatient (CLI) ==
[2013-05-09 06:58] VITALS: TEMP 99
--- NOTE | 2019-04-11 11:54 | MRI ---
EXAM: MRI of the brain with and without contrast HISTORY: Chronic migraines without aura TECHNIQUE: Multiplanar imaging of the brain was performed using T1, T2, inversion recovery, diffusio n, T2 gradient, and postcontrast T1W sequences. Comparison none. FINDINGS: There is no restricted diffusion. The lateral ventricles and cortical sulci are normal. Basal cisterns are patent. Normal flow voids are identified within the basal cisterns. The seventh and eighth cranial nerve complexes are normal. Normal flow signal is identified within the dural joey ous sinuses. No acute abnormalities are seen within the supratentorial white matter. No abnormal en hancement is identified within the brain on postcontrast images. The craniocervical junction and midline structures are normal. The soft tissues of the skull base an d nasopharynx appear normal. There is a large mucous retention cyst versus polyp seen within the lef t maxillary sinus. There is complete opacification of the left maxillary sinus. The remainder of th e paranasal sinuses are clear. IMPRESSION: There is a large mucous retention cyst versus polyp seen within the left maxillary sinus . Otherwise MRI of the brain appears within normal limits.
== END 2019-04-11 09:51 | disposition home or self-care (01) ==
LOC: RAD 09:50
PROVIDERS: ATTEND Family Medicine
DX: G43.709 Chronic migraine without aura, not intractable, without status migrainosus (principal); Z86.73 Personal history of transient ischemic attack (TIA), and cerebral infarction without residual deficits

== ENCOUNTER 2019-04-16 13:39 | Outpatient (CLI) ==
[2013-05-09 06:58] VITALS: TEMP 99
== END 2019-04-16 13:40 | disposition home or self-care (01) ==
LOC: RHC-LAB 13:39 → FCC-LAB 13:40
PROVIDERS: ATTEND Family Medicine
DX: N20.0 Calculus of kidney (principal)
CPT/HCPCS: 87086

== ENCOUNTER 2019-04-18 14:35 | Outpatient (CLI) ==
[2013-05-09 06:58] VITALS: TEMP 99
--- NOTE | 2019-04-18 15:55 | US ---
EXAM: RENAL ULTRASOUND, BILATERAL HISTORY: Calculus of kidney FINDINGS: Ultrasound renal, bilateral. Huertas-scale ultrasound and color Doppler imaging was performe d. The right kidney measures 10.4 x 3.6 x 4.3 centimeters. The left kidney measures 12.8 x 4.9 x 5.0 centimeters. A few punctate echogenicities within the kidneys bilaterally most noted on the right may represent sm all renal stones. No hydronephrosis is seen. General cortical volume is within normal limits. Over all cortical echogenicity is within normal limits. The urinary bladder was relatively decompressed although appeared grossly normal. IMPRESSION: 1. Probable bilateral nephrolithiasis. No hydronephrosis is identified. 2. Urinary bladder is within normal limits.
== END 2019-04-18 14:36 | disposition home or self-care (01) ==
LOC: RAD 14:35
PROVIDERS: ATTEND Family Medicine
DX: N20.0 Calculus of kidney (principal)

== ENCOUNTER 2019-05-23 19:28 | Emergency (ER) ==
[2019-05-23 19:31] VITALS: BP 122/87; BMI 25.4
--- NOTE | 2019-05-23 20:07 | ED.PDOC ---
General ED Provider: Dr. SHANNAN VALDEZ Chief Complaint: Urinary Problem Stated Complaint: Recurrent UTI. Referred to ER for eval of symptomatic UTI;. Prev has been seen by Dr Lewis in [place]. Current sx prestent for several days. Complains of lower back and flank pain. Time Seen by Physician: 19:45 Mode of Arrival: Walk-In Information Source: Patient Exam Limitations: No limitations Primary Care Provider: FAUZIA JACKSON Nursing and Triage Documentation Reviewed and Agree: Yes Does patient meet sepsis criteria?: No If yes, has appropriate treatment been initiated?: No System Inflammatory Response Syndrome: Not Applicable Sepsis Protocol: For patient's 13 years and over: Temp is 96.8 and below OR 101 and greater Pulse >90 BPM Resp >20/minute Acutely Altered Mental Status Are patient's symptoms suggestive of a new infection, such as: -Pneumonia -Skin, Soft Tissue -Endocarditis -UTI -Bone, Joint Infection -Implantable Device -Acute Abdominal Infection -Wound Infection -Meningitis -Blood Stream Catheter Infection -Unknown Complaint Exam - UTI Female Complaint/Exam Patient Complains of: Reports: Painful urination Onset/Duration: for past several days Symptoms Are: Still present Timing: Constant Initial Severity: Moderate Current Severity: Moderate Location of Pain: Reports: Right, Flank, Suprapubic Associated Signs and Symptoms: Reports: Flank pain Related History: Reports: Similar episode CVA Tenderness: Yes Suprapubic Tenderness: Yes Differential Diagnoses: Pyelonephritis, Ureteral Calculus Review of Systems - Review Of Systems Constitutional: Reports: No symptoms, Chills Eyes: Reports: No symptoms Ears, Nose, Mouth, Throat: Reports: No symptoms Respiratory: Reports: No symptoms Cardiac: Reports: No symptoms GI: Reports: No symptoms : Reports: Burning, Dysuria, Frequency, Flank pain, Pain, Urgency Musculoskeletal: Reports: No symptoms Skin: Reports: No symptoms Neurological: Reports: No symptoms Endocrine: Reports: No symptoms Hematologic/Lymphatic: Reports: No symptoms All Other Systems: Reviewed and Negative Past Medical History - Past Medical History Previously Healthy: Yes Endocrine: Reports: None Cardiovascular: Reports: None Respiratory: Reports: None Hematological: Reports: None Gastrointestinal: Reports: None Genitourinary: Reports: UTI, Kidney stones Neuro/Psych: Reports: None Musculoskeletal: Reports: None Cancer: Reports: None Last Menstrual Period: HYSTERECTOMY - Surgical History General Surgical History: Reports: Other (PFO CLOSURE, ESSURE, ) - Family History Family History: Reports: Unknown - Social History Smoking Status: Never smoker Hx Substance Use: No Alcohol Screening: None - Immunizations Tetanus Shot up to Date: No Physical Exam - Physical Exam Appearance: Well-appearing, No pain distress Ill-appearing: Mild Pain Distress: Moderate Eyes: MERLE, EOMI, Conjunctiva clear ENT: Ears normal, Nose normal, Oropharynx normal Neck: Supple Respiratory: Airway patent, Breath sounds clear, Breath sounds equal, Respirations nonlabored Cardiovascular: RRR, Pulses normal, No rub, No murmur GI/: Soft, No masses, Bowel sounds normal, No Organomegaly, Tender Musculoskeletal: Normal strength Skin: Warm Interpretation - Radiology Interpretation Radiology Interpretation By: Radiologist Exam Interpreted: CT Scan Xray Comments: abdomen/pelvis Radiology Interpretation By: Radiologist (No acute process. Chronic Rt cortical scarring , non obstructin grt renal calculi. lt adenxal mass./ free fluid pelvis ) Critical Care Note - Critical Care Note Total Time (mins): 0 Course - Course Hematology/Chemistry: 05/23/19 20:26 05/23/19 20:26 Orders, Labs, Meds: Lab Review 05/23/19 05/23/19 05/23/19 19:36 20:26 20:26 WBC 9.41 RBC 4.43 Hgb 13.0 Hct 37.6 MCV 84.9 MCH 29.3 MCHC 34.6 RDW Coeff of Reinaldo 12.3 Plt Count 197 Immature Gran % (Auto) 0.2 Neut % (Auto) 59.4 Lymph % (Auto) 31.0 [place] % (Auto) 8.0 Eos % (Auto) 1.1 Baso % (Auto) 0.3 Immature Gran # (Auto) 0.0 Neut # (Auto) 5.6 Lymph # (Auto) 2.9 [place] # (Auto) 0.8 Eos # (Auto) 0.1 Baso # (Auto) 0.0 Sodium 138.6 Potassium 3.70 Chloride 104.2 Carbon Dioxide 25.1 Anion Gap 13.00 BUN 12.5 Creatinine 0.75 Estimated GFR (MDRD) 91.00 BUN/Creatinine Ratio 16.66 Glucose 90.3 Calcium 8.84 Total Bilirubin 0.35 AST 23.7 ALT 18.3 Alkaline Phosphatase 53.5 Total Protein 7.26 Albumin 4.11 Globulin 3.15 Albumin/Globulin Ratio 1.30 Urine Color Yellow Urine Clarity Cloudy Urine pH 6.0 Ur Specific [place] 1.025 Urine Protein Negative Urine Glucose (UA) Negative Urine Ketones Negative Urine Blood Negative Urine Nitrite Positive Urine Bilirubin Negative Urine Urobilinogen 0.2 Ur Leukocyte Esterase Negative Urine Microscopic RBC 0-2 Urine Microscopic WBC 5-10 Ur Squamous Epith Cells 5-10 Urine Bacteria 4+ Orders Category Date Time Status BLOOD CULTURE (ED ONLY) Stat LAB 05/23/19 21:35 Received CBC W/ AUTO DIFF Stat LAB 05/23/19 20:26 Completed CMP [COMPREHENSIVE METABOLIC PANEL] Stat LAB 05/23/19 20:26 Completed URINALYSIS C & S IF INDICATED Stat LAB 05/23/19 19:36 Completed URINE CULTURE Stat LAB 05/23/19 19:36 Received Ceftriaxone Sodium [Rocephin] MEDS 05/23/19 21:40 Discontinued 1 gm IM ONCE STA Lidocaine HCl/Pf [Lidocaine HCl 1% Sdv] MEDS 05/23/19 21:52 Discontinued 5 ml SUBCUT ONCE STA Ondansetron [Zofran Odt] MEDS 05/23/19 21:27 Discontinued 4 mg PO ONCE STA CT ABD/PEL WO RENAL STONE PROT Stat RADS 05/23/19 20:[address] LUMBAR SPINE W/O CONTRAST Stat RADS 05/23/19 20:26 Completed Medications Discontinued Medications Generic Name Dose Route Start Last Admin Trade Name Freq PRN Reason Stop Dose Admin Ceftriaxone Sodium 1 gm 05/23/19 21:40 05/23/19 22:18 Rocephin IM 05/23/19 21:41 1 gm ONCE STA Administration Lidocaine HCl 5 ml 05/23/19 21:52 05/23/19 22:18 Lidocaine Hcl 1% Sdv SUBCUT 05/23/19 21:53 2.1 ml ONCE STA Administration Ondansetron HCl 4 mg 05/23/19 21:27 05/23/19 21:31 Zofran Odt PO 05/23/19 21:28 4 mg ONCE STA Administration Vital Signs: Temp Pulse Resp BP Pulse Ox 05/23/19 21:25 98.4 F 05/23/19 19:28 99.5 F 79 18 122/87 97 Departure - Departure Time of Disposition: 21:50 Disposition: HOME SELF-CARE Discharge Problem: UTI (urinary tract infection) Instructions: Urinary Tract Infection in Women (ED) Condition: Good Pt referred to PMD for follow-up: Yes (Dr Lewis Urology and Dr Tadeo) IPMP verified?: No Additional Instructions: Force fluids Good Feminine hygeine Take Meds as directed Follow up with Dr Lewis/david Allergies/Adverse Reactions: Allergies cephalexin monohydrate [From Keflex] Allergy (Mild, Verified 05/23/19 19:31) Hives, itching diphenhydramine HCl [From Benadryl] Adverse Reaction (Verified 05/23/19 19:31) loratadine [From Claritin] Adverse Reaction (Verified 05/23/19 19:31) Home Medications: Ambulatory Orders Nitrofurantoin Monohyd/M-Cryst [Macrobid 100 mg Capsule] 100 mg PO BID #20 capsule 05/23/19 Disposition Discussed With: Patient, Family
[2019-05-23 21:25] VITALS: TEMP 98.4
[2019-05-23] MEDS ORDERED: ZOFRAN ODT PO STA (21:27)
--- NOTE | 2019-05-23 21:33 | CT ---
EXAM: CT of the abdomen pelvis without contrast History: Urinary tract infection and urinary frequency, lower back pain and flank pain. Comparison: CT lumbar spine 05/23/2019, CT abdomen pelvis 03/21/2019 Technique: Multiplanar CT images through the abdomen pelvis were obtained without the administration of IV contrast Findings: Lung bases are clear. No acute osseous abnormalities. No gallstones identified by CT. No focal liver or splenic lesions. No peripancreatic inflammation. Adrenal glands are unremarkable. No change in the punctate 1-2 mm right renal cortical calcificatio ns and no change in the right renal scarring. No left renal calculi. No hydronephrosis. No uretera l calculi. Pelvic phleboliths are again seen. No bladder wall thickening. The appendix is normal. No bowel obstruction. 2.8 cm left adnexal mass. Small amount of free pelvic fluid. No perirectal inflammation. No free air. Moderate colonic stool. Impression: 1. No acute intra-abdominal or pelvic process. 2. No change in the right renal cortical scarring and nonobstructing right renal calculi. 3. Left adnexal mass and small amount of free pelvic fluid. Recommend further evaluation with pelvi c ultrasound.
--- NOTE | 2019-05-23 21:35 | CT ---
EXAM: CT scan lumbar spine HISTORY: Low back and flank pain COMPARISON: None. FINDINGS: Contiguous axial image obtained through the lumbar spine utilizing 3-mm collimation. Sagi ttal coronal reconstructions were imaged and reviewed. Mild levoscoliosis. The vertebral bodies are normal in height and alignment.. L4 L5 there is a concentric disc bulge with ligamentum flavum and f acet hypertrophy triangulate central canal mildly narrowing both neural foramen. At L5-S1 facet arth ropathy with mild disc bulge. Central canal and foramen are patent. Scarring is noted about the upp er pole right kidney which several nonobstructive calculi IMPRESSION: No acute findings. Triangulation the central canal L4 = L5 with mild neural foraminal narrowing
[2019-05-23] MEDS ORDERED: ROCEPHIN IM STA (21:40)
[2019-05-23] MEDS ORDERED: LIDOCAINE HCL 1% SDV SUBCUT STA (21:52)
== END 2019-05-23 22:40 | disposition home or self-care (01) ==
LOC: ED 19:28
DX: N39.0 Urinary tract infection, site not specified (principal); Z87.440 Personal history of urinary (tract) infections; Z87.442 Personal history of urinary calculi
CPT/HCPCS: 36415; 80053; 81001; 85025; 87040; 87086; 87186; 96372; 99283